=== PATIENT | female | born 1955 | race Caucasian/White ===

== ENCOUNTER 2018-01-10 08:27 | Emergency (ER) | payer SELFPAY ==
[2018-01-10] MEDS ORDERED: FISH OIL1000 MG PO (08:38)
[2018-01-10] MEDS ORDERED: B121000 MCG (08:38)
[2018-01-10] MEDS ORDERED: DELTASONE20 MG PO (09:42)
[2018-01-10 09:49] VITALS: BP 147/70
== END 2018-01-10 09:50 | disposition home or self-care (01) | DRG 916 ==
LOC: ED 08:27
DX: T78.40XA Allergy, unspecified, initial encounter (principal); F17.210 Nicotine dependence, cigarettes, uncomplicated